=== PATIENT | female | born 1955 | race African-American/Black ===

== ENCOUNTER 2018-03-05 11:16 | Inpatient (IN) | payer SELFPAY ==
[~2018-03-05] VITALS: Ht 167.6 cm; Wt 68.9 kg
[2018-03-05 12:27] LABS: BASOPHILS % 0.9 % (0.0-2.0); EOSINOPHILS % 0.1 % (0.0-5.0); HEMATOCRIT. 40.7 % (36.0-48.0); HEMOGLOBIN. 14.3 g/dL (12.0-16.0); LYMPHOCYTES % 23.2 % (20.0-50.0); MEAN CORPUSCULAR HEMOGLOBIN 36.6 pg (28.0-32.0); MEAN CORPUSCULAR VOLUME 104.3 fL (81.0-99.0); MEAN PLATELET VOLUME 7.5 fl (7.4-10.4); MONOCYTES % 9.7 % (2.0-8.0); NEUTROPHILS % 66.1 % (40.0-76.0); PLATELET 322 x1000/uL (130-400); RED CELL DISTRIBUTION WIDTH 17.1 % (11.6-14.6)
[2018-03-05 12:28] LABS: CHLORIDE 97 mEq/L (98-107)
[2018-03-05] MEDS ORDERED: POTASSIUM CHLORIDE INJ 40 MEQ in DEXT 5% WATER 500 ML IV ONE (13:00)
[2018-03-05] MEDS ORDERED: POTASSIUM CHLORIDE 20MEQ TABLET SR PO ONE (13:00)
[2018-03-05] MEDS ORDERED: CALCIUM GLUCONATE 100MG/ML 10ML VIAL IV ONE (14:30)
[2018-03-05] MEDS ORDERED: CALCIUM GLUCONATE 1000MG in DEXTROSE 5% WATER 50ML IV ONE (15:30)
[2018-03-05] MEDS ORDERED: ENALAPRIL 2.5MG/2ML VIAL 2ML IV ONE (15:45)
[2018-03-05] MEDS ORDERED: CLONIDINE 0.1MG TABLET PO ONE (17:00)
[2018-03-05 18:04] VITALS: BP 165/88
[2018-03-05 18:10] VITALS: BP 165/88
[2018-03-05] MEDS ORDERED: HYDROCODONE/ACETAMINOPHEN 5/325MG TABLET PO PRN (18:45)
[2018-03-05] MEDS ORDERED: ACETAMINOPHEN 650MG SUPP PR PRN (18:45)
[2018-03-05] MEDS ORDERED: ONDANSETRON HCL 4MG/2ML VIAL IV PRN (18:45)
[2018-03-05] MEDS ORDERED: DEXTROSE 50% WATER 50ML SYRINGE IV PRN (18:45)
[2018-03-05] MEDS ORDERED: DIPHENHYDRAMINE 50MG/ML VIAL IV PRN (18:45)
[2018-03-05] MEDS ORDERED: IPRATROPIUM/ALBUTEROL 0.5-3(2.5)MG/3ML NEB INH PRN (18:45)
[2018-03-05] MEDS ORDERED: HYDROCODONE/ACETAMINOPHEN 10/325MG TABLET PO PRN (18:45)
[2018-03-05] MEDS ORDERED: CLONIDINE 0.1MG TABLET PO PRN (18:45)
[2018-03-05] MEDS ORDERED: MAGNESIUM/ALUMINUM HYDROXIDE/SIMETHICONE 30ML UDC PO PRN (18:45)
[2018-03-05] MEDS ORDERED: ACETAMINOPHEN 650MG/20.3ML UDC GT PRN (18:45)
[2018-03-05] MEDS ORDERED: NA PHOS,M-B/NA PHOS,DI-BA ENEMA 118ML PR PRN (18:45)
[2018-03-05] MEDS ORDERED: ACETAMINOPHEN 325MG TABLET PO PRN (18:45)
[2018-03-05] MEDS ORDERED: DOCUSATE SODIUM 100MG CAPSULE PO PRN (18:45)
[2018-03-05] MEDS ORDERED: GUAIFENESIN 200MG/10ML SUGAR FREE UDC PO PRN (18:45)
[2018-03-05 20:00] VITALS: BP 159/83
[2018-03-05] MEDS ORDERED: POTASSIUM CHLORIDE 20MEQ TABLET SR PO NR ×2 (20:00→20:30)
[2018-03-05] MEDS: ENOXAPARIN 40MG/0.4ML SYR SUBCUT SCH (20:20)
[2018-03-05] MEDS: AMLODIPINE 10MG TABLET PO SCH (20:21)
[2018-03-05] MEDS ORDERED: BLOOD SUGAR DIAGNOSTIC STRIP TEST SCH (21:00)
[2018-03-05] MEDS ORDERED: INSULIN LISPRO 100 UNITS/ML SUBCUT SCH (21:00)
[2018-03-05 21:13] LABS: PHOSPHORUS 1.6 mg/dL (2.5-4.9)
[2018-03-05 22:00] VITALS: BP 142/73
[2018-03-05] MEDS ORDERED: POTASSIUM CHLORIDE 20MEQ/PACKET PO NR (22:15)
[2018-03-05] MEDS: SODIUM CHLORIDE 0.9% INJ 3ML FLUSH IVF SCH (22:17)
[2018-03-05] MEDS: FISH OIL/OMEGA-3 FATTY ACIDS 1000MG CAPSULE PO SCH (22:17)
[2018-03-05] MEDS ORDERED: POTASSIUM PHOS,M-BASIC-D-BASIC 30 MMOL in DEXT 5% WATER 500 ML IV NR (23:00)
[2018-03-05] MEDS ORDERED: MAGNESIUM 4 G PREMIX 100 ML IV NR (23:00)
[2018-03-06] VITALS (14 sets, daily range): BP systolic 122–167; BP diastolic 60–121
[2018-03-06] MEDS: SODIUM CHLORIDE 0.9% INJ 3ML FLUSH IVF SCH ×2 (06:20→15:11)
[2018-03-06 07:58] LABS: CLARITY URINE CLOUDY (CLEAR); COLOR URINE YELLOW (YELLOW); KETONES URINE NEGATIVE (NEGATIVE); LEUKOCYTE ESTERASE URINE 3+ (NEGATIVE); NITRITE URINE NEGATIVE (NEGATIVE); OCCULT BLOOD URINE NEGATIVE (NEGATIVE); PH URINE 6.5 (4.5-8.0); PROTEIN URINE NEGATIVE (NEGATIVE); SPECIFIC GRAVITY URINE 1.009 (1.005-1.030); UROBILINOGEN URINE 0.2 E.U./dL (0.2-1.0)
[2018-03-06 08:48] LABS: *AMPHETAMINES SCREEN URINE NEGATIVE (NEGATIVE); *BARBITURATES SCREEN URINE NEGATIVE (NEGATIVE); *BENZODIAZEPINES SCREEN URINE NEGATIVE (NEGATIVE); *COCAINE SCREEN URINE NEGATIVE (NEGATIVE); METHADONE URINE SCREEN NEGATIVE (NEGATIVE); OPIATES URINE SCREEN NEGATIVE (NEGATIVE)
[2018-03-06 08:49] LABS: CANNABINOID URINE SCREEN NEGATIVE (NEGATIVE); PHENCYCLIDINE URINE SCREEN NEGATIVE (NEGATIVE)
[2018-03-06 09:09] LABS: BASOPHILS % 0.9 % (0.0-2.0); EOSINOPHILS % 0.7 % (0.0-5.0); HEMATOCRIT. 40.4 % (36.0-48.0); HEMOGLOBIN. 13.8 g/dL (12.0-16.0); LYMPHOCYTES % 38.5 % (20.0-50.0); MEAN CORPUSCULAR HEMOGLOBIN 36.2 pg (28.0-32.0); MEAN CORPUSCULAR VOLUME 105.8 fL (81.0-99.0); MEAN PLATELET VOLUME 8.3 fl (7.4-10.4); MONOCYTES % 14.5 % (2.0-8.0); NEUTROPHILS % 45.4 % (40.0-76.0); PLATELET 264 x1000/uL (130-400); RED BLOOD CELL COUNT 3.82 mill/uL (4.2-5.4); RED CELL DISTRIBUTION WIDTH 17.4 % (11.6-14.6)
[2018-03-06] MEDS: AMLODIPINE 10MG TABLET PO SCH (09:36)
[2018-03-06] MEDS: FISH OIL/OMEGA-3 FATTY ACIDS 1000MG CAPSULE PO SCH ×2 (09:37→16:30)
[2018-03-06] MEDS: SPIRONOLACTONE 25MG TABLET PO SCH (09:37)
[2018-03-06 11:12] LABS: CHLORIDE 101 mEq/L (98-107)
[2018-03-06 11:19] LABS: HDL CHOLESTEROL 95 mg/dL (40-59)
[2018-03-06 11:20] LABS: PHOSPHORUS 4.3 mg/dL (2.5-4.9)
[2018-03-06 11:21] LABS: LDL CHOLESTEROL 65 mg/dL (5-100)
[2018-03-06] MEDS ORDERED: POTASSIUM CHLORIDE 20MEQ/PACKET PO NR ×2 (12:47→16:00)
[2018-03-06] MEDS ORDERED: ERGOCALCIFEROL 50000UNITS CAPSULE PO SCH (14:00)
[2018-03-06] MEDS: CALCIUM CARBONATE 1,250 MG/5 ML UDC PO SCH (17:50)
[2018-03-06] MEDS: ENOXAPARIN 40MG/0.4ML SYR SUBCUT SCH (20:17)
[2018-03-07] VITALS (9 sets, daily range): BP systolic 113–154; BP diastolic 64–89
[2018-03-07 06:32] LABS: BASOPHILS % 0.5 % (0.0-2.0); EOSINOPHILS % 0.6 % (0.0-5.0); HEMATOCRIT. 36.3 % (36.0-48.0); HEMOGLOBIN. 12.6 g/dL (12.0-16.0); LYMPHOCYTES % 26.2 % (20.0-50.0); MEAN CORPUSCULAR HEMOGLOBIN 36.7 pg (28.0-32.0); MEAN PLATELET VOLUME 8.6 fl (7.4-10.4); NEUTROPHILS % 62.7 % (40.0-76.0); PLATELET 221 x1000/uL (130-400); RED BLOOD CELL COUNT 3.43 mill/uL (4.2-5.4); RED CELL DISTRIBUTION WIDTH 17.1 % (11.6-14.6)
[2018-03-07 08:02] LABS: CHLORIDE 101 mEq/L (98-107)
[2018-03-07] MEDS ORDERED: CALC500O PO (08:04)
[2018-03-07] MEDS ORDERED: FISH PO (08:04)
[2018-03-07] MEDS ORDERED: AMLO10TA80 PO (08:04)
[2018-03-07] MEDS ORDERED: SPIR25TA PO (08:04)
[2018-03-07 08:13] LABS: PHOSPHORUS 2.8 mg/dL (2.5-4.9)
[2018-03-07] MEDS: AMLODIPINE 10MG TABLET PO SCH (08:34)
[2018-03-07] MEDS: CALCIUM CARBONATE 1,250 MG/5 ML UDC PO SCH (08:34)
[2018-03-07] MEDS: FISH OIL/OMEGA-3 FATTY ACIDS 1000MG CAPSULE PO SCH (08:35)
[2018-03-07] MEDS: SPIRONOLACTONE 25MG TABLET PO SCH (08:35)
[2018-03-07] MEDS ORDERED: POTASSIUM CHLORIDE 20MEQ/PACKET PO SCH ×2 (09:00→12:00)
[2018-03-07] MEDS ORDERED: SPIRONOLACTONE 25MG TABLET PO SCH (09:00)
[2018-03-07] MEDS ORDERED: MAGNESIUM 2 G PREMIX 50 ML IV NR (10:00)
== END 2018-03-07 17:20 | disposition home or self-care (01) | DRG 425 ==
LOC: ER 13:45 → EDBEDREQ 14:38 → EDBEDREQTM 14:38 → ENRESERV 15:01 → 5EST 16:54 → EDBEDREQSVC 16:55 → EDBEDREQTM 16:56 → EDBEDREQ 17:07
PROVIDERS: ADMIT Family Medicine; ATTEND Family Medicine
DX: E87.6 Hypokalemia (principal); E83.42 Hypomagnesemia; I10 Essential (primary) hypertension; E83.39 Other disorders of phosphorus metabolism; E83.51 Hypocalcemia; E78.1 Pure hyperglyceridemia; Z85.3 Personal history of malignant neoplasm of breast; Z90.12 Acquired absence of left breast and nipple; Z82.49 Family history of ischemic heart disease and other diseases of the circulatory system
CPT/HCPCS: 36415; 71045; 80048; 80053; 80061; 80305; 81003; 82088; 82306; 82436; 82570; 83036; 83735; 83930; 83935; 84100; 84132; 84133; 84244; 84300; 85025; 87086; 93005; 96374; 96375; 99285; J0610; J1650; J2405; J3475; J3480; J3490; J7050; J7060